=== PATIENT | female | born 1955 | race Caucasian/White ===

== ENCOUNTER 2020-11-13 13:06 | Emergency (ER) | payer MEDICARE, MEDICAID, SELFPAY ==
--- NOTE | 2020-11-13 13:07 | ED.SKABFB ---
HPI - Skin/Abscess/Foreign Bdy General Chief complaint: Skin/Abscess/Foreign Body Stated complaint: rash Time Seen by Provider: 11/13/20 13:07 Source: patient and RN notes reviewed History of Present Illness HPI narrative: Patient is a 64-year-old female who presents the urgent care with a family member with complaints of a rash to the bilateral legs that has now spread to her lower arms. Patient states is been ongoing for approximately 1 month. States that 1 month ago she was placed on steroid creams from her PCP which has not been approved the rash. Patient patient is unaware on how the rash started and states that she just woke up with multiple areas to the bilateral legs . Patient denies of any fevers, chills, nausea, vomiting. States that they scab over and then the scab falls off . Patient denies of any recent swimming in public pools or going to public gyms. No other acute complaints. No acute distress noted. Patient aware of the plan of care. Some parts of this dictation were generated by voice recognition software and may contain typographical and/or grammatical inaccuracies. Related Data Home Medications Medication Instructions Recorded Confirmed Adult Aspirin 11/13/20 Advair Diskus 11/13/20 BuSpar 11/13/20 Crestor 11/13/20 Flexeril 11/13/20 Requip 11/13/20 Singulair 11/13/20 albuterol 11/13/20 aripiprazole 11/13/20 duloxetine 11/13/20 metformin 11/13/20 metoprolol succinate 11/13/20 pantoprazole 11/13/20 tolterodine 11/13/20 Allergies Allergy/AdvReac Type Severity Reaction Status Date / Time Sulfa (Sulfonamide Allergy Unknown Verified 11/13/20 13:20 Antibiotics) Review of Systems Review of Systems: Narrative: CONSTITUTIONAL: Denies fever, chills, or sweats. EYES: Denies visual changes, redness, or discharge. ENT: Denies rhinorrhea, congestion, sore throat, or otalgia. CARDIOVASCULAR: Denies chest pain, palpitations, or edema. RESPIRATORY: Denies cough or dyspnea. GASTROINTESTINAL: Denies abdominal pain, nausea, vomiting, or diarrhea. GENITOURINARY: Denies dysuria or hematuria. SKIN: Reports of an itchy rash to bilateral lower legs spreading to the bilateral lower arms/hands MUSCULOSKELETAL: Denies back pain, joint pain, or myalgia. NEUROLOGIC: Denies headache, numbness, or weakness. All other systems reviewed are negative, except as documented in HPI. PMFSH Comments At the time of my signature, I reviewed and agree with the nursing past medical, surgical, social, and family history. There is no relevant family history pertinent to the patient complaint. Exam Narrative: Exam Narrative: GENERAL: This is a well-nourished, well-developed patient, in no apparent distress. HEAD: normocephalic, atraumatic. EYES: PERRL. Sclera clear/white. Vision is grossly intact. EARS: External ears normal NOSE: External nose normal with no obvious nasal discharge, nares without redness, no rhinorrhea. THROAT: Mucous membranes moist NECK: Neck supple CARDIOVASCULAR: Regular rate and rhythm without murmurs, gallops, or rubs. RESPIRATORY: Clear to auscultation. Breath sounds equal bilaterally. No wheezes, rales, or rhonchi. SKIN: Plaque-like erythemic pruritic dermatitis noted to bilateral lower legs, scattered to upper thighs, bilateral hands NEURO: awake, alert, and oriented to person, place and time. There were no obvious focal neurologic abnormalities. EXTREMITIES: No clubbing, cyanosis, or edema. Course Vital Signs Vital signs: Vital Signs Temperature 97.2 F L 11/13/20 13:16 Pulse Rate 82 11/13/20 13:16 Respiratory Rate 11/13/20 13:16 Blood Pressure 130/93 H 11/13/20 13:16 Pulse Oximetry 97 11/13/20 13:16 Temperature 97.2 F L 11/13/20 13:16 Pulse Rate 82 11/13/20 13:16 Respiratory Rate 20 11/13/20 13:16 Blood Pressure 130/93 H 11/13/20 13:16 Pulse Oximetry 97 11/13/20 13:16 Reviewed-patient is informed that they may have pre-hypertension
[2020-11-13 13:16] VITALS: BP 130/93; PULSE 82; RESP 20; TEMP 36.2; O2SAT 97
== END 2020-11-13 13:38 | disposition home or self-care (01) ==
PROVIDERS: Emergency Provider Nurse Practitioner Family
DX: L25.9 Unspecified contact dermatitis, unspecified cause (principal); E78.00 Pure hypercholesterolemia, unspecified; J45.909 Unspecified asthma, uncomplicated; E11.9 Type 2 diabetes mellitus without complications
CPT/HCPCS: 99213; G0463